=== PATIENT | female | born 1980 | race Two or more races ===

== ENCOUNTER → 2017-07-30 13:40 | Outpatient (CLI) | payer BC | END | disposition home or self-care (01) | LOC: D.RAD 13:40 → D.LABREF 13:40 | DX: G89.29 Other chronic pain (principal) ==

== ENCOUNTER → 2018-01-30 13:30 | Outpatient (CLI) | payer BC | END | disposition home or self-care (01) | LOC: D.MRI 13:30 | DX: R51 Headache (principal) ==

== ENCOUNTER → 2018-03-31 08:09 | Outpatient (CLI) | payer BC | END | disposition home or self-care (01) | LOC: D.US 08:09 | DX: K76.89 Other specified diseases of liver (principal) ==

== ENCOUNTER → 2019-07-30 07:57 | Outpatient (CLI) | payer BC | END | disposition home or self-care (01) | LOC: D.MRI 07:57 | PROVIDERS: ATTEND Family Medicine | DX: M54.5 Low back pain (principal); M54.6 Pain in thoracic spine ==

== ENCOUNTER 2019-08-28 08:00 | Outpatient (CLI) | payer BC | END 2019-08-28 23:59 | disposition home or self-care (01) | LOC: D.MAMMO 08:00 | PROVIDERS: ATTEND Family Medicine | DX: Z12.31 Encounter for screening mammogram for malignant neoplasm of breast (principal) ==